=== PATIENT | male | born 1995 | race Caucasian/White ===

== ENCOUNTER 2019-09-07 20:18 | Emergency (ER) | payer OTHER ==
[~2019-09-07] VITALS: Ht 180.3 cm; Wt 115.7 kg
[2019-09-07] MEDS ORDERED: NORCO 5-325 TA1 EAC2 PO (21:56)
[2019-09-07] MEDS ORDERED: IBUPROFEN 800800 M1 PO (21:56)
[2019-09-07 22:26] VITALS: BP 151/90
== END 2019-09-07 22:26 | disposition home or self-care (01) ==
LOC: M.ERS 20:18
DX: S93.491A Sprain of other ligament of right ankle, initial encounter (principal); W01.0XXA Fall on same level from slipping, tripping and stumbling without subsequent striking against object, initial encounter; Y93.02 Activity, running; Y92.89 Other specified places as the place of occurrence of the external cause; Y99.8 Other external cause status

== ENCOUNTER → 2020-11-23 | Emergency (ER) | payer OTHER ==
[~2020-11-23] VITALS: Ht 180.3 cm; Wt 115.2 kg
[~2020-11-23] MED LIST: APAP W/CODEINE1 TA2 PO; IBUPROFEN 800800 M1 PO; NAPROSYN500 M1 PO; NORCO 5-325 TA1 EAC2 PO; PROAIR HFA8.5 GM INH; TESSALON PERLE100 M1 PO; VISTARIL 25 MG25 M1 PO
[2020-11-23 13:14] VITALS: BP 152/106
== END ==
LOC: M.ERS 12:35
DX: J06.9 Acute upper respiratory infection, unspecified (principal); Z20.822 Contact with and (suspected) exposure to COVID-19; Z79.899 Other long term (current) drug therapy